=== PATIENT | female | born 1970 | race Caucasian/White ===

== ENCOUNTER 2016-06-09 12:43 | Inpatient (IN) | payer SELFPAY ==
[~2016-06-09] VITALS: Ht 144.8 cm; Wt 63.1 kg
--- NOTE | ~2016-06-09 | CATH ---
Cardiac Diagnostic + PCI Report Demographics Patient Name EDELMIRA Zepeda Gender Female Date of 1970 Age 46 year(s) Patient Number [id number] Date of Study 06/09/2016 Visit Number [id number] Room Number G6333 [place] [id number] Ht 149.86 cm Wt 66.2 kg Referring [facility] Primary Physician Physician Jacinda RAMIREZ Performing [facility] Secondary Physician Physician Jacinda RAMIREZ Diagnostic [facility] Assisting Physician Physician Jacinda RAMIREZ Interventional [facility] Physician Clinical Nursing Coordinator Physician Jacinda RAMIREZ Findings and Conclusions Diagnostic Findings and Conclusion 1) ANTEROLATERAL STEMI: 100% prox LAD stent thrombosis. 2) Diag 1 stent 100% occluded at ostium. Diagnostic Recommendations Primary PCI of LAD recommended. Interventional Findings and Conclusion Successful PCI of the proximal LAD after PTCA of proximal/mid LAD and ostial/proximal diagonal branch. Successful PTCA of the ostial Diagonal 1 coronary artery. 80% stenosis of ostial diag unchanged from cardiac cath in 11/2014. Interventional Recommendations Patient will be observed overnight. Hydration and followup creatinine. I will plan on seeing the patient back in 2 week(s). ASA. Statin. Beta Vick. Didier Inhibitor. Hydration and follow up Creatinine. Dual Anti-platelet therapy. Smoking Cessation. Cardiac diet . Referral to Cardiac Rehabilitation now and at discharge . Aggressive risk factor management. Reiterated the importance of compliance with meds. Procedure Description The patient was brought to the diagnostic cardiac catheterization-EP laboratory by emergency personal. Physician deemed procedure as EMERGENT. The planned puncture-incision site(s) were shaved and prepped with ChloraPrep and draped in the usual sterile manner. Conscious sedation, supplemental oxygen, and pain control medications were delivered by a registered nurse under physician guidance. Surface ECG rhythm, blood pressure measurement, and pulse oximetry were monitored throughout the procedure. Arterial access. The access site was infiltrated with lidocaine. The vessel was entered with the Seldinger technique. A sheath was advanced into the vessel and used for catheter placement. Selective right coronary angiography. A catheter was advanced into the right coronary vessel ostium under fluoroscopic guidance. Contrast was injected by hand. Images were obtained in multiple projections. Selective left coronary angiography. A catheter was advanced into the left coronary vessel ostium under Fluoroscopic guidance. Contrast was injected by hand. Images were obtained in multiple projections. Stent Placement: A guiding catheter was used to intubate the vessel. A 0.14 wire was used to cross the lesion. A Drug Eluting Stent was placed. Post placement angiograms were performed. Arterial artery hemostasis was achieved. The patient was transferred to a regular nursing floor via cart accompanied by a nurse. The patient left the laboratory in stable condition. Diagnostic Cath Status: Emergency Interventional Cath Status: Emergency Procedure Procedure Type Diagnostic procedure:Angiography:, Coronary Angios PCI procedure:Drug Eluting Coronary Stent:, LAD, PTCA:, LAD, Diagonal Indications: Acute MA. The procedure was explained in detail to the patient. Risks, complications and alternative treatments were reviewed. Written consent was obtained. Medications Reviewed with Patient prior to Procedure. Angiographic Findings Dominance: Left Cardiac Arteries and Lesion Findings LMCA: Normal (0% Stenosis). LAD: Abnormal.There is a previous stent on Prox LAD showing occlusion. Lesion on Prox LAD: Proximal subsection.100% stenosis reduced to 0%. Pre procedure AMY 0 flow was noted. Post Procedure AMY III flow was present. The guidewire cross was successful.A poor run off was present.The lesion was diagnosed as a high risk lesion.The lesion showed evidence of thrombus presence.Culprit lesion. The lesion was previously treated on 03/13/2000 with the following techniques: drug eluting stent. This is in-stentrestenosis and in-stent thrombus. Devices used - Runthrough NS .014 x 180. Number of passes: 1. - Emerge Balloon 2.5 x 8. 3 inflation(s) to a max pressure of: 8 alejandro. - NC Emerge Balloon 3.0 x 20. 3 inflation(s) to a max pressure of: 14 alejandro. - Emerge Balloon 2.5 x 20. 1 inflation(s) to a max pressure of: 12 alejandro. - Alpine Stent 3.25 x 33. 1 inflation(s) to a max pressure of: 12 alejandro. Lesion on 1st Diag: Proximal subsection.100% stenosis 25 mm length reduced to 0%. Pre procedure AMY 0 flow was noted. Post Procedure AMY III flow was present. The guidewire cross was successful.A poor run off was present.The lesion was diagnosed as a high risk lesion.Culprit lesion. The lesion was previously treated with the following techniques: stent unknown type. This is in-stentrestenosis. Devices used - Runthrough NS .014 x 180. Number of passes: 1. - Emerge Balloon 2.0 x 8. 2 inflation(s) to a max pressure of: 14 alejandro. - Emerge Balloon 2.5 x 20. 3 inflation(s) to a max pressure of: 14 alejandro. LCx: Abnormal.There is a previous stent on Mid CX showing focal ISR. Lesion on Mid CX: 30% stenosis . The lesion was previously treated on 03/13/2000 with the following techniques: stent unknown type and unknown/other technique. This is in-stentrestenosis. Lesion on Dist CX: 30% stenosis . Lesion on 1st Ob Olivia% stenosis . RCA: Abnormal.There is a previous stent on Prox RCA showing focal ISR. Lesion on Prox RCA: 20% stenosis . The lesion was previously treated on 08/27/2012 with the following techniques: stent unknown type and unknown/other technique. This is in-stentrestenosis. Ramus: Abnormal. Lesion on Ramus: Mid subsection.40% stenosis . Coronary Tree Procedure Data Procedure Date Date: 06/09/2016Start: 01:01 PMEnd: 02:24 PM Entry Locations - Retrograde Percutaneous access was performed through the Right Radial artery (Primary location). A 6 Fr sheath was inserted. Hemostasis was successfully obtained using Mechanical Compression. Entry Comments: 6Fr. Slender Sheath was used... Closure Comments: Jolanta placed band 13 ml air placed in r band. Procedure Medications Order and Administration + + + + + !Time !Medication !Dosage !Route ! + + + + + !06/09/2016 01:01 !Versed !2 mg !I.V. ! !PM ! ! ! ! + + + + + !06/09/2016 01:02 !Oxygen !2 l/min !NC ! !PM ! ! ! ! + + + + + !06/09/2016 01:11 !Fentanyl !50 mcg !I.V. ! !PM ! ! ! ! + + + + + !06/09/2016 01:13 !Oxygen !6 l/min !NC ! !PM ! ! ! ! + + + + + !06/09/2016 01:20 !Angiomax (Bivalirudin) !50 mg/kg/hr !I.V. bolus ! !PM !(ACC_5) ! ! ! + + + + + !06/09/2016 01:21 !Angiomax (Bivalirudin) !1.75 mg/kg/hr!I.V. drip ! !PM !(ACC_5) ! ! ! + + + + + !06/09/2016 01:36 !Fentanyl !25 mcg !I.V. ! !PM ! ! ! ! + + + + + !06/09/2016 01:41 !Fentanyl !25 mcg !I.V. ! !PM ! ! ! ! + + + + + !06/09/2016 01:55 !Brilinta (Ticagrelor) !180 mg !P.O. ! !PM !(ACC_20) ! ! ! + + + + + !06/09/2016 02:00 !Versed !1 mg !I.V. ! !PM ! ! ! ! + + + + + !06/09/2016 01:48 !Fentanyl !25 mcg ! ! !PM ! ! ! ! + + + + + !06/09/2016 01:56 !Fentanyl !25 mcg !I.V. ! !PM ! ! ! ! + + + + + Devices Used - A5 Fr. BS JR 4 Diag. Catheterwas used for:Right coronary angiography. - A6 Fr. EBU 3.5 Guide Catheterwas used for:Left coronary angiography. - A5 Fr. BS JL 3.5 Diag. Catheterwas used for:Was not used. Contrast Material - Isovue 07748 ml Fluoroscopy Time: Diagnostic: 14:54 minutes. Total: 14:54 minutes. Fluoroscopy Dose: Diagnostic: 873 mGy. Total: 873 mGy. Estimated Blood Loss: 20 ml. Additional [facility] PCI Information PCI Indication:Immediate PCI for STEMI. Medical History Performed Procedures and Imaging Results - No [facility] stress or imaging studies were performed. Allergies - No known allergies. Risk Factors The patient risk factors include:prior PCI on 08/27/2012;treated hypercholesterolemia, treated hypertension, family history of premature CAD, orally-treated diabetes mellitus, dyslipidemia, Current/Recent(w/in 1 year) tobacco use and prior MA . Admission Data Admission Date: 06/09/2016 Admission Time: 12:45 PM Admit Source: Emergency department Insurance Payors: None. Clinical Evaluation Leading to Procedure - The patient's CAD presentation was assessed as: STEMI.The symptom onset was first noted on 06/09/2016 12:45 PM(time was estimated). - The patient's anginal syndrome during the past two weeks was assessed as: Class IV according to the [place] Cardiovascular Society Classification System (CCS). Snapshots Hemodynamics Condition: Rest O2 Consumption: Estimated: 159.42Heart Rate: 70 bpm Pressures (mmHg) +-----+ + !Site !Pressure ! +-----+ + !AO !148/87 (114) ! +-----+ + !AO !135/84 (107) ! +-----+ + Shunts Oxygen Values O2 Consumption 159.42 Discharge Data Discharge Date: 06/10/2016 Hospital Status: Inpatient Signatures dtt: JACINDA TAYLOR dtd: 06/09/16 1301 Physician Self Edit
--- NOTE | ~2016-06-09 | ECHO ---
Transthoracic Echocardiography Report (TTE) Demographics Patient Name DELILAH HICKEY Date of Study 06/09/2016 Patient Number [id number] Visit Number [id number] Date of 1970 Room Number G6333 Gender Female Number Age 46 year(s) Referring Luis Miguel Monaco Mine Wirer Richard Villeda Physician RD, RVT Physician Interpreting Luis Miguel Monaco Senior Health Educator Physician MD Supervising Ordering Luis Miguel Monaco MD/MLP Physician MD Nurse Stress Second Cutter Conclusions Summary Technically difficult exam due to patient position and body habitus. Definity contrast study performed to help visualize the regional wall motion abnormalities better. Ischemic cardiomyopathy with mildly reduced LV systolic function. The estimated left ventricular ejection fraction is 40-45%. The entire anteroseptum appears akinetic. Mild assymetric septal left ventricular hypertrophy. Diastolic assessment reveals Grade I diastolic dysfunction. No significant valvular abnormalities. No evidence of pericardial effusion. Procedure Type of Study TTE procedure:2D Echocardiogram, Echo with Contrast. Procedure Date Date: 06/09/2016 Start: 04:26 PM Study Location: Inpatient Portable Technical Quality: Adequate visualization Indications:Post PTCA. Appropriate Use Criteria: 9 Patient Status: Routine Contrast Medium: Definity. Amount - 4 ml HR: 75 bpm BP: 132/80 mmHg Allergies - No known allergies. M-Mode/2D Measurements LV Diastolic Dimension: 3.81 cm LV Systolic Dimension: 2.65 cm LV Septum Diastolic: 1.11 cm LV PW Diastolic: 0.76 cm AO Root Dimension: 2.5 cm Cardiac Output: 2.61 l/min LA Dimension: 2.7 cm LVOT: 1.6 cm LVOT VTI: 17.3 cm RV Base: 2.7 cm LV Stroke volume: 34.77 ml RV Length: 5.6 cm TAPSE: 2.01 cm TDI-S': 14.7 cm/s Doppler Measurements AV Peak Velocity: 1.36 m/s MV Peak E-Wave: 0.63 m/s AV Peak Gradient: 7.4 mmHg MV Peak A-Wave: 0.74 m/s AV Mean Gradient: 4 mmHg MV E/A Ratio: 0.85 LVOT Peak Velocity: 0.81 m/s MV P1/2t: 50 msec TR Gradient:28.3 mmHg PV Peak Velocity: 0.77 m/s Estimated RAP:5 mmHg PV Peak Gradient: 2.36 mmHg Estimated RVSP: 33 mmHg Estimated PASP: 33.3 mmHg E' Septal Velocity: 0.03 m/s A' Septal Velocity: 0.09 m/s E' Lateral Velocity: 0.04 m/s A' Lateral Velocity: 0.09 m/s Findings Left Ventricle Mild assymetric septal left ventricular hypertrophy. Diastolic assessment reveals Grade I diastolic dysfunction. Right Ventricle Normal right ventricle structure and function. Left Atrium Normal left atrial size. Right Atrium Normal right atrial size. IVC measures 1.2 cm with inspiratory collapse. Mitral Valve Trace mitral regurgitation by color Doppler. Aortic Valve Normal aortic valve structure and function. Tricuspid Valve Mild tricuspid regurgitation by color Doppler. Pulmonic Valve Normal pulmonic valve structure and function. Pericardial Effusion No evidence of pericardial effusion. Miscellaneous Visualized portions of the aortic root and ascending aorta appear normal in size. Pleural Effusion No evidence of pleural effusion. Signature dtt: TAMIA TAYLOR dtd: 06/09/16 1626 Physician Self Edit
--- NOTE | ~2016-06-09 | ER ---
PATIENT'S NAME: DELILAH HICKEY [facility] AGE: 46 Y [address] ROOM: [place] [address] LOCATION: GPCU ADMIT DATE: 06/09/2016 ER/Outpatient Report DISCHARGE DATE: FAMILY PHYSICIAN: PHYSICIAN, NO ATTENDING PHYSICIAN: TAMIA TAYLOR Time of Arrival: 1243 hours. Time Seen: 1243 hours. ID: 46-year-old female. CHIEF COMPLAINT: Code STEMI. HISTORY OF PRESENT ILLNESS: The patient is a 46-year-old female who was at [facility] when she developed chest pain, lightheadedness, and dizziness. She did fall then and fell backwards striking her posterior scalp and is complaining of headache and pain down her entire spine. EMS transmitted an EKG pre-hospital that showed ST- elevation in leads V1 to V5 and also in lead I with reciprocal depression. The patient does have a history of previous MS and stent in 2011. Now, however, she is not complaining of chest pain, she is complaining of headache and spine pain. ALLERGIES: THE PATIENT DENIES ANY ALLERGIES. CURRENT MEDICATIONS: None. MEDICAL PROBLEMS: She stated only coronary artery disease. Records reflect history of diabetes mellitus type 2 and hypertension. PRIOR SURGERIES: Appendectomy, cholecystectomy, and . SOCIAL HISTORY: Tobacco use, unknown at the time of arrival. Records reflect a history of tobacco use. FAMILY HISTORY: Positive for premature coronary artery disease on both sides of her family. PATIENT'S NAME: DELILAH HICKEY [facility] AGE: 46 Y [address] ROOM: [place] [address] LOCATION: GPCU ADMIT DATE: 06/09/2016 ER/Outpatient Report DISCHARGE DATE: FAMILY PHYSICIAN: PHYSICIAN, NO ATTENDING PHYSICIAN: TAMIA TAYLOR REVIEW OF SYSTEMS: All systems reviewed and negative other than what is noted in the HPI. PHYSICAL EXAMINATION: Was done briefly as the patient was being wheeled in. She was hemodynamically stable, so Dr. Monaco, winch stripper was here and we did take her straight to CT scan for CT of her head and spine. Code STEMI had been called from the field. VITAL SIGNS: Blood pressure 112/76, pulse 74, respirations 28, and saturations 98%. GENERAL: A 46-year-old female, in distress with pain in her head and spine. HEENT: Head: Normocephalic, atraumatic. Ears: TMs not visualized. Eyes: Pupils equal and reactive to light and accommodation. Extraocular movements intact. Nose: Mucosa pink. No lesions. Mouth: No lesions. Pharynx, benign. No malocclusion of her teeth. LUNGS: Clear to auscultation. HEART: Regular rate and rhythm. ABDOMEN: Soft, nondistended, and nontender. SKIN: [place], warm, and dry. No lesions or rashes noted. NEURO: The patient is alert and oriented x4. Cranial nerves 2 through 12 grossly intact. Motor strength 5/5 throughout. Sensation is intact to light touch. EMERGENCY DEPARTMENT COURSE: The patient was taken directly to CT scan. Head CT, no acute findings. Cervical spine CT, no acute findings. Thoracic spine CT, no acute findings. Lumbar spine CT, no acute findings. Mild ectasia of the ascending thoracic aorta and coronary stent and calcifications are present. Lab was going to be drawn in the Hardware Test Engineer and repeat EKG at the hospital, Dr. Monaco cancelled. She was then taken immediately to Hardware Test Engineer. I did review the labs drawn in Hardware Test Engineer. Sodium 140, potassium 3.4, chloride 106, CO2 of 22, BUN 9, creatinine 0.6, and blood sugar 210. CPK 60, CK-MB 0.6, and troponin I less than 0.040. Hemoglobin A1c 7.2. Hemoglobin 13.6, hematocrit 41.4, platelets 314, and white count 20.3. IMPRESSION AND PLAN: 1. Code ST elevation myocardial infarction. 2. Fall with head and spine pain. PLAN: The patient was taken directly to CT and then to Hardware Test Engineer. Plan per Dr. Monaco, winch stripper. PATIENT'S NAME: DELILAH HICKEY [facility] AGE: 46 Y [address] ROOM: G6333 [place], [place] [address] LOCATION: GPCU ADMIT DATE: 06/09/2016 ER/Outpatient Report DISCHARGE DATE: FAMILY PHYSICIAN: PHYSICIAN, NO ATTENDING PHYSICIAN: TAMIA TAYLOR MD LUZ WHEELER/rama /[id number] d: 06/10/16 0013 t: 06/15/16 0114, OUTPATIENT REPORT
--- NOTE | ~2016-06-09 | CON ---
PATIENT'S NAME: DELILAH HICKEY [facility] AGE: 46 Y [address] ROOM: [place] [address] LOCATION: GPCU ADMIT DATE: 06/09/2016 Consultation DISCHARGE DATE: FAMILY PHYSICIAN: PHYSICIAN, NO ATTENDING PHYSICIAN: TAMIA TAYLOR REFERRING PHYSICIAN: Liana Diaz MD REASON FOR CARDIOLOGY CONSULTATION: STEMI. CHIEF COMPLAINT: Chest pain. HISTORY OF PRESENTING ILLNESS: The patient is a 46-year-old with extensive history of coronary artery disease. She has had stents placed in her LAD diagonal as well as mid circ, distal circ, and RCA in the past. It appears that her kiln burner helper is Dr. Leblanc, but she has not followed up with him because she does not have any insurance, she cannot afford medications. She has been noncompliant with all her medications. She does smoke half a pack per day. Apparently, she was in her usual state of health. Late morning, she went to [facility] and she started complaining of severe chest pain as well as diaphoresis. She felt lightheaded, lost consciousness, fell down, and hurt her back and head. EMS was called and they got EKG on site where there was evidence of significant ST elevation in the anterolateral leads with ST depressions reciprocal in the inferior leads. The patient had severe chest pain as well as back pain upon arrival. A stat CT scan of the head was done in the emergency room to ensure no bleed in her brain as well as quick CT scan of the spine was done to make sure no significant herniation noted. During interview, the patient was in moderate distress and complained of chest as well as back pain. The patient does not have any bleeding issues. She does not have any upcoming surgeries. No allergies. She does not have any fever, chills, cough, no dyspnea on exertion prior to today. She does not have any stroke-like symptoms, changes in her speech or sensation. Again, she is not taking any medications or has not seen a doctor in the recent past. She also has history of diabetes, she reports borderline, and she is on diet control for that. PATIENT'S NAME: DELILAH HICKEY [facility] AGE: 46 Y [address] ROOM: [place] [id number] LOCATION: GPCU ADMIT DATE: 06/09/2016 Consultation DISCHARGE DATE: FAMILY PHYSICIAN: PHYSICIAN, NO ATTENDING PHYSICIAN: TAMIA TAYLOR REVIEW OF SYSTEMS: 10-point review of systems discussed with the patient. Pertinent positives and negatives mentioned in the history of presenting illness. PAST MEDICAL HISTORY: 1. Diabetes mellitus, borderline, on diet control. 2. Coronary artery disease. 3. Hypertension. PAST SURGICAL HISTORY: Postop appendectomy, post cholecystectomy. MEDICATIONS: None. ALLERGIES: NONE. SOCIAL HISTORY: The patient smokes half a pack per day for the past 32 years. She did cut back recently. She used to smoke about one pack per day before that. She does drink alcohol. No alcohol abuse or illicit drug abuse. PHYSICAL EXAMINATION: VITAL SIGNS: Blood pressure 130/70, saturating 98% on 4 L of oxygen, respirations 18, afebrile. GENERAL: The patient is in moderate distress from back and chest pain. She is cooperative. SKIN: Warm and dry. EYES: Sclera nonicteric. No xanthelasmas. NOSE: Nares are normal. Mucous membranes are moist. NECK: Supple. HEART: S1, S2. Regular rate and rhythm. LUNGS: Clear to auscultation bilaterally. ABDOMEN: Soft. Bowel sounds positive. EXTREMITIES: Radial 2+. NEUROLOGIC: Grossly intact. MUSCULOSKELETAL: No swelling of her joints. LABORATORY DATA: Sodium 140, potassium 3.4, chloride 106, glucose 210, BUN 9, creatinine 0.9. ProBNP 360. WBC 20.3, H and H 13.6 and 41.4. Platelets are 314. EKG; sinus rhythm with anterolateral ST elevation KS with reciprocal changes off ST depression in the inferior leads. PATIENT'S NAME: DELILAH HICKEY [facility] AGE: 46 Y [address] ROOM: G6333 [place], [place] [address] LOCATION: GPCU ADMIT DATE: 06/09/2016 Consultation DISCHARGE DATE: FAMILY PHYSICIAN: PHYSICIAN, [place] ATTENDING PHYSICIAN: TAMIA TAYLOR IMPRESSION: 1. Acute anterolateral ST-elevation myocardial infarction. 2. Diabetes mellitus. 3. Tobacco abuse. 4. Noncompliance with medications. 5. History of coronary artery disease status post stents to the mid LAD diagonal 1, mid circ, distal circ, and RCA. PLAN: At this time, the patient is having an acute anterolateral ST-elevation KS and needs to be taken to the cardiac tin can laborer emergently. Risks and benefits discussed with the patient on route to tin can laborer and she is agreeable to proceed with the plan. Counselled against tobacco abuse. Final plans and recommendations will be done after the cardiac tin can laborer. We will get an echocardiogram the after cardiac cath. The patient is a full code. Thank you very much for allowing us to participate in the care of Ms. Bennie Gomez. TAMIA TAYLOR MD AT/modl /[id number] d: 06/09/167 t: 06/10/16 1404, CONSULTATION REPORT
[2016-06-09 13:29] LABS: BASOPHIL # 0.1 K/uL (0.0-0.2); BASOPHIL % 0.3 %; EOSINOPHIL # 0.2 K/uL (0.0-0.5); EOSINOPHIL % 1.1 %; HEMATOCRIT 41.4 % (33.0-46.0); HEMOGLOBIN 13.6 g/dL (10.0-15.0); IMMATURE GRANULOCYTE # 0.1 K/uL (0.0-0.3); IMMATURE GRANULOCYTE % 0.5 %; LYMPHOCYTE # 3.8 K/uL (0.8-4.0); LYMPHOCYTE % 18.6 %; MCH 30.4 pg (27.0-34.0); MCHC 32.9 gm/dL (32.0-36.5); MCV 92.4 fl (83.0-98.0); MONOCYTE # 1.9 K/uL (0.0-1.0); MONOCYTE % 9.5 %; MPV 9.7 fl (9.4-12.4); NEUTROPHIL # (ANC) 14.2 K/uL (1.8-7.8); NRBC % 0 /100WBC (0-0.00); RBC 4.48 M/uL (3.50-5.50)
[2016-06-09 13:30] LABS: PLATELET COUNT 314 K/uL (150-450); WBC 20.3 K/uL (4.0-11.0)
[2016-06-09 13:49] LABS: ANION GAP 15.4 (10.0-19.0); BLOOD UREA NITROGEN 9 mg/dL (6-24); CALCIUM 7.9 mg/dL (8.5-10.5); CHLORIDE 106 mMol/L (96-110); CO2 22 mMol/L (22-32); CPK 60 IU/L (21-215); CREATININE 0.6 mg/dL (0.5-1.1); ESTIMATED GFR (MDRD EQUATION) > 60; POTASSIUM 3.4 mMol/L (3.7-5.1); SODIUM 140 mMol/L (135-145)
--- NOTE | 2016-06-09 16:16 | NUR ---
Pt is 46 y/o female admit for chest pain>stent for . Pt alert and oriented x3. Resides at home with her family. Hx MIx2,stents x5,htn,hyper- cholest,ulcer,gerd,bronchitis,DM. Hasn't taken her meds for awhile due to cost. Pt was at work didn't feel well,lightheaded and went into the cooler thinking she would feel better if she cooled off and then she fell,hitting back of her head. Coworkers found her and called the EMS unit. Pt taken to ED then to boat laborer for intervention.
--- NOTE | 2016-06-09 17:13 | NUR ---
Significant Event: VS WNL on room air. Currently removing air from R-band. R) radial site has small amount of bruising and residual blood but looks good. CSM WNL. Hair matted in back from cut to back of head. Unable to locate exact location of cut but it is not actively bleeding. Voided upon return from microbiology laboratory manager. NS to upper L) arm running w/out complication. SL to R) hand flushes well. C/o some back pain, relieved with repositioning. No c/o headache. CT of head and neck were negative per report. Follow up: Per plan of care.
--- NOTE | 2016-06-10 04:41 | NUR ---
Significant Event: A/O, SBP 110-140s, HR 70-80s, RA, afebrile, bandaid and coban to R)radial cath site, csm wnl, voiding well, up ad marilyn, Tylenol given for headache/back pain with relief Follow up: continue plan of care
[2016-06-10 05:13] LABS: BASOPHIL # 0.1 K/uL (0.0-0.2); BASOPHIL % 0.5 %; EOSINOPHIL # 0.3 K/uL (0.0-0.5); EOSINOPHIL % 2.1 %; HEMOGLOBIN 12.8 g/dL (10.0-15.0); IMMATURE GRANULOCYTE # 0.1 K/uL (0.0-0.3); IMMATURE GRANULOCYTE % 0.4 %; LYMPHOCYTE # 3.3 K/uL (0.8-4.0); LYMPHOCYTE % 27.8 %; MCV 93.9 fl (83.0-98.0); MONOCYTE # 1.7 K/uL (0.0-1.0); MONOCYTE % 14.5 %; MPV 9.8 fl (9.4-12.4); NEUTROPHIL # (ANC) 6.4 K/uL (1.8-7.8); NEUTROPHIL % 54.7 %; NRBC % 0 /100WBC (0-0.00); RBC 4.26 M/uL (3.50-5.50); RDW-CV 14.2 % (11.9-14.6); WBC 11.7 K/uL (4.0-11.0)
[2016-06-10 05:28] LABS: ALBUMIN 2.8 gm/dL (3.5-5.0); ALK PHOS 69 IU/L (33-138); ALT 20 IU/L (12-78); ANION GAP 12.1 (10.0-19.0); AST 46 IU/L (10-40); BLOOD UREA NITROGEN 10 mg/dL (6-24); CALCIUM 7.7 mg/dL (8.5-10.5); CHLORIDE 104 mMol/L (96-110); CO2 26 mMol/L (22-32); CREATININE 0.6 mg/dL (0.5-1.1); ESTIMATED GFR (MDRD EQUATION) > 60; POTASSIUM 4.1 mMol/L (3.7-5.1); SODIUM 138 mMol/L (135-145); TOTAL BILIRUBIN 0.2 mg/dL (0.0-1.5); TOTAL PROTEIN 6.2 g/dL (6.0-8.4)
[2016-06-10 05:33] LABS: PLATELET COUNT 228 K/uL (150-450)
[2016-06-10 09:37] LABS: MAGNESIUM 1.9 mg/dL (1.3-2.6)
--- NOTE | 2016-06-10 12:12 | NUR ---
Introduced self and role of care management to pt. Pt lives in [place] with her and friends. She just got a new job at [employer]. She does not have insurance and does not have a job. I did make sure she has a financial application and will notify Giuseppe. She plans on home today. I did explain I placed a free 30 day card for Brilinta and signed her up for [facility] and the importance of taking the med and if runs out to please contact [facility] cardiology. I also told her I asked md to consider $4 meds/generic as well for her. I asked about a pcp and she is planning to set up something at [facility]. I will also give her paperwork for this as well. I will fax over dc meds and orders to [facility] once complete. At this time denies any other concern.
[2016-06-10] MEDS ORDERED: LIPITOR80 MG PO (14:17)
[2016-06-10] MEDS ORDERED: ASPIRIN (CHILDR81 MG PO (14:17)
[2016-06-10] MEDS ORDERED: PRINIVIL (ZESTRI5 MG PO (14:18)
[2016-06-10] MEDS ORDERED: LOPRESSOR25 MG PO (14:23)
[2016-06-10] MEDS ORDERED: BRILINTA90 MG PO (14:24)
[2016-06-10] MEDS ORDERED: TYLENOL325 MG PO (14:24)
--- NOTE | 2016-06-10 15:14 | NUR ---
Significant Event:PT IS AAOX3. NO CHEST PAIN. NO SOB. IV REMOVED X2. NO COMPLICATIONS. INSTRUCTION GIVEN TO PT AND . SAMPLES SENT WITH PATIENT Follow up:
== END 2016-06-10 14:50 | disposition disaster alternative care site (69) | DRG 247 ==
LOC: GMED 12:43 → GPCU 12:45
PROVIDERS: Nurse Practitioner; ADMIT Internal Medicine Interventional Cardiology
PROC: 027034Z Dilation of Coronary Artery, One Artery with Drug-eluting Intraluminal Device, Percutaneous Approach (ICD-10-PCS; principal; 2016-06-09)
PROC: 02703ZZ Dilation of Coronary Artery, One Artery, Percutaneous Approach (ICD-10-PCS; principal; 2016-06-09)
PROC: B2111ZZ Fluoroscopy of Multiple Coronary Arteries using Low Osmolar Contrast (ICD-10-PCS; principal; 2016-06-09)
DX: I21.02 ST elevation (STEMI) myocardial infarction involving left anterior descending coronary artery (principal); T82.855A Stenosis of coronary artery stent, initial encounter; I10 Essential (primary) hypertension; I25.10 Atherosclerotic heart disease of native coronary artery without angina pectoris; I25.2 Old myocardial infarction; E11.9 Type 2 diabetes mellitus without complications; Y84.8 Other medical procedures as the cause of abnormal reaction of the patient, or of later complication, without mention of misadventure at the time of the procedure; E78.5 Hyperlipidemia, unspecified; Z82.49 Family history of ischemic heart disease and other diseases of the circulatory system; M54.2 Cervicalgia; R51 Headache; W18.39XA Other fall on same level, initial encounter; Z91.14 Patient's other noncompliance with medication regimen; F17.200 Nicotine dependence, unspecified, uncomplicated
CPT/HCPCS: C1725; C1769; C1874; C1887; C1894; C8929; C9606; J0461; J0583; J1644; J2250; J2270; J2370; J3010; J7030; J7060; Q9957

== ENCOUNTER → 2016-06-09 | Outpatient (CLI) | payer SELFPAY ==
[~2016-06-09] MED LIST: ASPIRIN (CHILDR81 MG PO; BRILINTA90 MG PO; LIPITOR80 MG PO; LOPRESSOR25 MG PO; PRINIVIL (ZESTRI5 MG PO; TYLENOL325 MG PO
== END | disposition disaster alternative care site (69) ==
LOC: GAMB 12:17
DX: R07.9 Chest pain, unspecified (principal); R55 Syncope and collapse
CPT/HCPCS: A0425; A0427; J2405

== ENCOUNTER 2016-06-24 14:12 | Emergency (ER) | payer OTHER ==
--- NOTE | ~2016-06-24 | ER ---
PATIENT'S NAME: DELILAH HICKEY [facility] AGE: 46 Y [address] ROOM: [place] [address] LOCATION: [facility] ADMIT DATE: 06/24/2016 ER/Outpatient Report DISCHARGE DATE: 06/24/2016 FAMILY PHYSICIAN: PHYSICIAN, NO ATTENDING PHYSICIAN: Liana Diaz Time of Arrival: 1412 hours. Time Seen: 1414 hours. IDENTIFICATION: A 46-year-old female. CHIEF COMPLAINT: Headache. HISTORY OF PRESENT ILLNESS: The patient is a 46-year-old female who had an acute ST-elevation AL on 06/09/2016, with that chest pain episode she fell backwards striking her posterior scalp and complained of a headache and pain down her spine. She did have a head CT, cervical spine CT, thoracic and lumbar spine CT immediately on that arrival and then was taken to slab grinder where she was found to have a 100% proximal LAD stent thrombosis and a diagonal stent 100% occluded at the ostium. She had a primary PCI of the LAD per Dr. Jacinda Bolanos. She has continued to have a posterior headache since that time, slight nausea, slight neck discomfort, photophobia, and some dizziness. She denies any chest pain and no other problems or concerns. She was not prone to headaches prior to this. ALLERGIES: NO KNOWN DRUG ALLERGIES. CURRENT MEDICATIONS: 1. She was prescribed aspirin 81 mg daily, which she is taking. 2. Atorvastatin 80 mg daily, which she has not filled yet. 3. Lisinopril 5 mg daily, which she has not filled yet. 4. Metoprolol 25 mg b.i.d., which she has not filled yet. 5. Brilinta 90 mg b.i.d., which she states she is taking. MEDICAL PROBLEMS: Coronary artery disease, status post AL and stents in 2011. Records reflect history of diabetes mellitus and hypertension, recent proximal LAD stenosis with stent. PRIOR SURGERIES: Appendectomy, cholecystectomy, section, and cardiac stents. PATIENT'S NAME: DELILAH HICKEY [facility] AGE: 46 Y [address] ROOM: [place] [address] LOCATION: [facility] ADMIT DATE: 06/24/2016 ER/Outpatient Report DISCHARGE DATE: 06/24/2016 FAMILY PHYSICIAN: PHYSICIAN, NO ATTENDING PHYSICIAN: Liana Diaz SOCIAL HISTORY: The patient lives here in [place]. She is . She works at [employer]. Tobacco use, greater than 1 pack per day for 30 years. Alcohol use, occasional. Drug use, denies. REVIEW OF SYSTEMS: All systems reviewed and negative other than what is noted in the HPI. FAMILY HISTORY: Positive for premature coronary artery disease. PHYSICAL EXAMINATION: VITAL SIGNS: Weight 65.5 kilograms, blood pressure 122/78, pulse 114, respirations 20, temperature 98.1, sats 95%. GENERAL: A 46-year-old female, in no acute distress. HEENT: Head; normocephalic, atraumatic. Ears; TMs translucent, both ears. Eyes; pupils equal and reactive to light and accommodation. Extraocular movements intact. Nose, mucosa pink. No lesions or drainage. Mouth, no lesions. Pharynx benign. NECK: Supple. No lymphadenopathy. LUNGS: Clear to auscultation. HEART: Regular rate and rhythm. No murmur, rub, or gallop. ABDOMEN: Bowel sounds present. Soft, nondistended. No hepatosplenomegaly. No palpable masses. Nontender. SKIN: [place], warm, and dry. No lesions or rashes noted. NEUROLOGIC: The patient is alert and oriented x4. Cranial nerves 2 through 12 grossly intact. Motor strength 5/5 throughout. Sensation is intact to light touch. She has a scabbed lesion on her right posterior scalp which is tender to palpation. Tender to palpation of her cervical spine, midline; no palpable deformities, it is a little bit more to the left where it is tender. LABORATORY DATA AND X-RAYS: Cervical spine CT, negative for acute fracture or dislocation. She has an incomplete bone formation at the posterior arch of C1, this is a normal variant. Degenerative changes at cervical intervertebral levels, most pronounced at C5-C6 and C6-C7. Head CT, no acute findings per Dr. Cavazos, radiologist. IMPRESSION: 1. Headache, post concussive headache. 2. Coronary artery disease. 3. Tobacco abuse. PLAN: PATIENT'S NAME: DELILAH HICKEY [facility] AGE: 46 Y [address] ROOM: [place] [address] LOCATION: [facility] ADMIT DATE: 06/24/2016 ER/Outpatient Report DISCHARGE DATE: 06/24/2016 FAMILY PHYSICIAN: PHYSICIAN, MONTSERRAT ATTENDING PHYSICIAN: Liana Diaz Long discussion regarding smoking cessation and filling her prescribed medications and the importance of having those. Stay quite for 7 days. No work until followup with Dr. Jacinda Bolanos next week. Ransom 5/325 one p.o. q.6 hours p.r.n. severe pain, dispensed 10 with 0 refills. Follow up with Dr. Jacinda Bolanos next . The patient and her understand and agree, and all questions have been answered. MD LUZ WHEELER/rama /[id number] d: 06/24/16 2334 t: 06/28/16 0649, OUTPATIENT REPORT
== END 2016-06-24 15:35 | disposition disaster alternative care site (69) ==
LOC: GACC 14:12
DX: G44.309 Post-traumatic headache, unspecified, not intractable (principal); I25.10 Atherosclerotic heart disease of native coronary artery without angina pectoris; I25.2 Old myocardial infarction; E11.9 Type 2 diabetes mellitus without complications; I10 Essential (primary) hypertension; F17.210 Nicotine dependence, cigarettes, uncomplicated; Z79.82 Long term (current) use of aspirin; Z90.49 Acquired absence of other specified parts of digestive tract; Z98.890 Other specified postprocedural states

== ENCOUNTER 2016-07-24 09:20 | Emergency (ER) | payer SELFPAY ==
--- NOTE | ~2016-07-24 | ER ---
PATIENT'S NAME: DELILAH HICKEY [facility] AGE: 46 Y [address] ROOM: [place] [address] LOCATION: ED ADMIT DATE: 07/24/2016 ER/Outpatient Report DISCHARGE DATE: 07/24/2016 FAMILY PHYSICIAN: PHYSICIAN, NO ATTENDING PHYSICIAN: Winston Diaz TIME OF ARRIVAL: 0920 hours. TIME SEEN: 0940hours. IDENTIFICATION: A 46-year-old female. CHIEF COMPLAINT: Back pain. HISTORY OF PRESENT ILLNESS: The patient is a 46-year-old female who has had low back pain for the last 2 days. She says it is in her low back and radiates down the back of her both of her legs. No numbness or tingling other than she said her toes do have some tingling. She has no bowel or bladder problems. She denies having any prior history of back pain. However, I have seen her a couple of different times here lately when she did have back pain. Most recently, patient had an acute CO with fallJune 09 status post LAD and diagonal stents. The patient denies any dysuria. No increased frequency of urination. No fever or chills. ALLERGIES: NO KNOWN DRUG ALLERGIES. CURRENT MEDICATIONS: She does not have her list with her, but she states that she is taking them as ordered. At her last visit, she was not taking them as ordered and was prescribed aspirin 81 mg daily, Atorvastatin 80 mg daily, lisinopril 5 mg daily, metoprolol 25 mg b.i.d., and Brilinta 90 mg b.i.d. PAST MEDICAL HISTORY: Coronary artery disease status post CO and stent, diabetes mellitus, and hypertension. PRIOR SURGERIES: Appendectomy, cholecystectomy, section, and cardiac stents. PATIENT'S NAME: DELILAH HICKEY [facility] AGE: 46 Y [address] ROOM: [place] [address] LOCATION: ED ADMIT DATE: 07/24/2016 ER/Outpatient Report DISCHARGE DATE: 07/24/2016 FAMILY PHYSICIAN: PHYSICIAN, MONTSERRAT ATTENDING PHYSICIAN: Winston Diaz SOCIAL HISTORY: The patient lives here in [place]. She is . She works at [employer]. Tobacco use, 1 pack per day for 22 years, cutting down to 1/2 pack per day. Alcohol use, occasional. Drug use, denies. REVIEW OF SYSTEMS: All systems reviewed and negative other than what is noted in the HPI. FAMILY HISTORY: Positive for premature coronary artery disease. PHYSICAL EXAMINATION: VITAL SIGNS: Height 5 feet 1 inch, weight 64.8 kg, blood pressure 129/60, pulse 92, respirations 16, temperature 98.3, sats 96% on room air. GENERAL: A 46-year-old female, in no acute distress. HEENT: Unremarkable. LUNGS: Clear to auscultation. HEART: Regular rate and rhythm. ABDOMEN: Soft, nondistended, nontender. SKIN: [place], warm, and dry. No lesions or rashes noted. NEURO: The patient is alert and oriented x4. Cranial nerves 2 through 12 grossly intact. Motor strength 5/5 throughout. Sensation is intact to light touch. Slightly diminished sensation to light touch on her feet but it does not go above the ankles. Negative straight leg raise. She is tender to palpation in her lumbar paraspinal muscles, which does reproduce her pain. The patient has had no recent fall or injury. She cannot have an MRI with her recent stents. We did give her Magnolia 2 tablets here in the emergency room and her pain improved from a 10 to a zero. IMPRESSION: Back pain. PLAN: Magnolia 5/325 1-2 p.o. q.4-6 hours p.r.n. severe pain, dispensed 10 with 0 refills. Ice or heat. No lifting and no work until followup with primary care physician in 1-2 days. Follow up sooner if any problems or concerns. The patient understands and agrees, and all questions have been answered. WINSTON DIAZ MD CAR/modl PATIENT'S NAME: DELILAH HICKEY [facility] AGE: 46 Y [address] ROOM: [place] [address] LOCATION: [facility] ADMIT DATE: 07/24/2016 ER/Outpatient Report DISCHARGE DATE: 07/24/2016 FAMILY PHYSICIAN: PHYSICIAN, NO ATTENDING PHYSICIAN: Winston Diaz /[id number] d: 07/24/162056 t: 07/27/16 0642, OUTPATIENT REPORT
== END 2016-07-24 11:11 | disposition disaster alternative care site (69) ==
LOC: GMED 09:20
DX: M54.5 Low back pain (principal); I25.2 Old myocardial infarction; I25.10 Atherosclerotic heart disease of native coronary artery without angina pectoris; E11.9 Type 2 diabetes mellitus without complications; F17.210 Nicotine dependence, cigarettes, uncomplicated; I10 Essential (primary) hypertension; Z90.49 Acquired absence of other specified parts of digestive tract; Z95.5 Presence of coronary angioplasty implant and graft; Z79.82 Long term (current) use of aspirin; Z79.899 Other long term (current) drug therapy

== ENCOUNTER 2016-08-14 12:04 | Emergency (ER) | payer SELFPAY ==
--- NOTE | ~2016-08-14 | ER ---
PATIENT'S NAME: DELILAH HICKEY [facility] AGE: 46 Y [address] ROOM: [place] [address] LOCATION: ED ADMIT DATE: 08/14/2016 ER/Outpatient Report DISCHARGE DATE: 08/14/2016 FAMILY PHYSICIAN: Chanel Doty MD ATTENDING PHYSICIAN: Liana Diaz Time of Arrival: 1204 hours. Time of Evaluation: 1241 hours. IDENTIFICATION: A 46-year-old female. CHIEF COMPLAINT: Dizziness, nausea, and headache. HISTORY OF PRESENT ILLNESS: The patient has had dizziness, nausea, and headache for the last 2 to 3 days. She has had some decreased output when urinating. She has some back pain, which is chronic. She has had headaches before. The patient had an acute NC with a fall on June 09 and was in a couple of times with headaches and back pain after that. No previous history of migraine headaches. She had a head CT, cervical spine CT, thoracic and lumbar spine CT on June 09, and she had a subsequent head CT on a return visit on June 24 for headache. The patient has had no fever, chills. No numbness, tingling, or weakness. ALLERGIES: NO KNOWN DRUG ALLERGIES. CURRENT MEDICATIONS: 1. Aspirin 81 mg. 2. Atorvastatin 80 mg daily. 3. Lisinopril 5 mg daily. 4. Metoprolol 25 mg b.i.d. 5. Brilinta 90 mg b.i.d. MEDICAL PROBLEMS: Coronary artery disease, status post NC and stents in 2011 and again in 2017; hypertension. PRIOR SURGERIES: Appendectomy, cholecystectomy, section, and cardiac stents. SOCIAL HISTORY: The patient lives here in [place]. She is . She works at [employer]. Tobacco use, less than half pack a day. Alcohol use, occasional. Drug use, PATIENT'S NAME: DELILAH HICKEY [facility] AGE: 46 Y [address] ROOM: [place] [address] LOCATION: ED ADMIT DATE: 08/14/2016 ER/Outpatient Report DISCHARGE DATE: 08/14/2016 FAMILY PHYSICIAN: Chanel Doty MD ATTENDING PHYSICIAN: Liana Diaz. REVIEW OF SYSTEMS: All systems reviewed and negative other than what is noted in the HPI. The patient does have some dyspnea on exertion when she is walking to work, and she does have some seasonal allergies with congestion. No nasal drainage. FAMILY HISTORY: Positive for premature coronary artery disease. PHYSICAL EXAMINATION: VITAL SIGNS: Height 4 feet 9 inches, weight 62.2 kg, blood pressure 127/75, pulse 81, respirations 18, temperature 98.5, and saturations 97%. HEENT: Head: Normocephalic, atraumatic. Eyes: Pupils equal and reactive to light and accommodation. Extraocular movements intact. Nose: Mucosa is slightly congested. No drainage. No sinus tenderness. Mouth: No lesions. Pharynx benign. NECK: Supple. No lymphadenopathy. No nuchal rigidity. LUNGS: Clear to auscultation. Breath sounds are equal. HEART: Regular rate and rhythm. No murmur, rub, or gallop. ABDOMEN: Bowel sounds present. Soft, nondistended, nontender. SKIN: [place], warm, and dry. No lesions or rashes noted. NEURO: The patient is alert and oriented x4. Cranial nerves 2 through 12 grossly intact. Motor strength 5/5 throughout. Sensation is intact to light touch. No lower extremity edema. No calf tenderness. LABORATORY DATA AND X-RAYS: Hemoglobin 13.8, hematocrit 42.6, platelets 256, white count 14,000, with a normal differential. INR 0.98. Sodium 139, potassium 4.2, chloride 107, CO2 of 25, BUN 11, creatinine 0.6, blood sugar 86. Liver enzymes normal. Magnesium 1.9. CPK 61, CK-MB less than 0.5. Troponin I less than 0.040. UA: 10-20 white cells, negative red cells, 5-10 epithelial cells, many bacteria. Urine culture is pending. EKG: Normal sinus rhythm, 70 beats per minute. No acute ST elevation, no change when compared to June 09. Chest x-ray, no acute process, pending Radiology over-read. EMERGENCY DEPARTMENT COURSE: The patient was given one [place] and one Zofran, which did improve her nausea. She continued to have some dizziness and then she had some intermittent sharp chest pain, for which she said she normally would take a nitroglycerin at home. She was not having pain when I was talking to her. We did get the EKG and cardiac workup that was negative, and she had no recurrent episodes of chest pain. IMPRESSION: PATIENT'S NAME: DELILAH HICKEY [facility] AGE: 46 Y [address] ROOM: [place], [place] [address] LOCATION: [facility] ADMIT DATE: 08/14/2016 ER/Outpatient Report DISCHARGE DATE: 08/14/2016 FAMILY PHYSICIAN: Chanel Doty MD ATTENDING PHYSICIAN: Liana Diaz 1. Headache, improved. 2. Urinary tract infection. 3. Chest pain, resolved. PLAN: Rest, fluids, slow cautious movements. Bactrim DS b.i.d. for 3 days. Continue her current medications. Follow up with Dr. Doty in 1 to 2 days. Follow up sooner if any problems or concerns. The patient and her understand and agree, and all questions have been answered. LIANA DIAZ MD CAR/modl /[id number] d: 08/15/16 0004 t: 08/18/16 0933, OUTPATIENT REPORT
[2016-08-14 14:12] LABS: BASOPHIL # 0.1 K/uL (0.0-0.2); BASOPHIL % 0.5 %; EOSINOPHIL # 0.2 K/uL (0.0-0.5); EOSINOPHIL % 1.4 %; HEMATOCRIT 42.6 % (33.0-46.0); HEMOGLOBIN 13.8 g/dL (10.0-15.0); IMMATURE GRANULOCYTE % 0.3 %; LYMPHOCYTE # 3.4 K/uL (0.8-4.0); LYMPHOCYTE % 24.2 %; MCH 30.3 pg (27.0-34.0); MCHC 32.4 gm/dL (32.0-36.5); MCV 93.6 fl (83.0-98.0); MONOCYTE # 1.7 K/uL (0.0-1.0); MONOCYTE % 12.5 %; MPV 9.5 fl (9.4-12.4); NEUTROPHIL # (ANC) 8.5 K/uL (1.8-7.8); NEUTROPHIL % 61.1 %; NRBC % 0 /100WBC (0-0.00); PLATELET COUNT 256 K/uL (150-450); RBC 4.55 M/uL (3.50-5.50); RDW-CV 13.7 % (11.9-14.6)
[2016-08-14 14:20] LABS: INR - (THERAPEUTIC) 0.98 (0.92-1.07); PROTIME 10.3 SECONDS (9.8-11.4); PTT 28 SECONDS (25-32)
[2016-08-14 14:32] LABS: ALBUMIN 3.6 gm/dL (3.5-5.0); ALK PHOS 92 IU/L (33-138); ALT 25 IU/L (12-78); ANION GAP 11.2 (10.0-19.0); AST 18 IU/L (10-40); BLOOD UREA NITROGEN 11 mg/dL (6-24); CALCIUM 7.8 mg/dL (8.5-10.5); CHLORIDE 107 mMol/L (96-110); CO2 25 mMol/L (22-32); CPK 61 IU/L (21-215); CREATININE 0.6 mg/dL (0.5-1.1); ESTIMATED GFR (MDRD EQUATION) > 60; MAGNESIUM 1.9 mg/dL (1.8-2.6); POTASSIUM 4.2 mMol/L (3.7-5.1); SODIUM 139 mMol/L (135-145); TOTAL PROTEIN 7.4 g/dL (6.0-8.4)
[2016-08-14 14:34] LABS: TOTAL BILIRUBIN 0.3 mg/dL (0.0-1.5)
[2016-08-14 15:19] LABS: BILIRUBIN URINE NEGATIVE (NEGATIVE); BLOOD URINE NEGATIVE /UL (NEGATIVE); COLOR URINE YELLOW (YELLOW); GLUCOSE URINE 50 mg/dL (NEGATIVE); KETONE URINE NEGATIVE (NEGATIVE); LEUKOCYTES URINE 500 /UL (NEGATIVE); NITRITE URINE NEGATIVE (NEGATIVE); PROTEIN URINE 15 mg/dL (NEGATIVE); SPEC GRAVITY URINE 1.025 (1.003-1.035); TURBIDITY URINE 1+ (CLEAR); UROBILINOGEN URINE 1 mg/dL (NORMAL)
[2016-08-14 15:27] LABS: BACTERIA URINE MANY (NEGATIVE); MUCUS URINE 4+ (NEGATIVE); RBC URINE NEGATIVE #/HPF (NEGATIVE)
== END 2016-08-14 16:05 | disposition disaster alternative care site (69) ==
LOC: GMED 12:04
PROVIDERS: Family Medicine
DX: R07.9 Chest pain, unspecified (principal); N39.0 Urinary tract infection, site not specified; R51 Headache; I10 Essential (primary) hypertension; I25.10 Atherosclerotic heart disease of native coronary artery without angina pectoris; F17.210 Nicotine dependence, cigarettes, uncomplicated; I25.2 Old myocardial infarction; Z79.899 Other long term (current) drug therapy; Z79.82 Long term (current) use of aspirin; Z95.9 Presence of cardiac and vascular implant and graft, unspecified

== ENCOUNTER 2016-09-21 13:53 | Emergency (ER) | payer SELFPAY ==
--- NOTE | ~2016-09-21 | ER ---
PATIENT'S NAME: DELILAH HICKEY [facility] AGE: 46 Y [address] ROOM: [place] [address] LOCATION: [facility] ADMIT DATE: 09/21/2016 ER/Outpatient Report DISCHARGE DATE: 09/21/2016 FAMILY PHYSICIAN: PHYSICIAN, NO ATTENDING PHYSICIAN: Michael Wolff Time of Arrival: 1359 hours. Time of Evaluation: 1410 hours. CHIEF COMPLAINT: Neck swelling. HISTORY OF PRESENT ILLNESS: The patient is a 46-year-old female, who presents to the emergency department with a chief complaint of neck swelling. She reports this started about 1 day prior to arrival. She denies any fevers or chills. No nausea or vomiting. No photophobia or dizziness. She does report some neck discomfort and is mild in severity. It is worse with touch. She does complain of a pounding headache as well. It is not the worst headache of her life. No sudden onset. PAST MEDICAL HISTORY: Coronary artery disease, status post myocardial infarction with stenting in 2011 and 2016, hypertension, dyslipidemia. PAST SURGICAL HISTORY: Appendectomy, cholecystectomy, , and cardiac stents. SOCIAL HISTORY: The patient smokes half pack per day for 34 years. Denies any alcohol or illicit drug use. ALLERGIES: NO KNOWN DRUG ALLERGIES. MEDICATIONS: Please see list. PRIMARY CARE DOCTOR: Dr. Doty. REVIEW OF SYSTEMS: All systems are reviewed by myself and are negative with the exception of those discussed in HPI and past medical history. PHYSICAL EXAMINATION: PATIENT'S NAME: DELILAH HICKEY [facility] AGE: 46 Y [address] ROOM: [place] [address] LOCATION: [facility] ADMIT DATE: 09/21/2016 ER/Outpatient Report DISCHARGE DATE: 09/21/2016 FAMILY PHYSICIAN: PHYSICIAN, NO ATTENDING PHYSICIAN: Michael Wolff VITAL SIGNS: Weight 63.6 kg, blood pressure 138/62, pulse 93, respiratory rate 18, temperature 98.3, oxygen saturation 95% on room air. GENERAL: The patient is a 46-year-old female, appears stated age, in no acute distress. HEENT: Head: Normocephalic, atraumatic. Pupils are equal, round, and reactive to light. Extraocular motions are intact. Nares are patent bilaterally. NECK: Supple. She does have some tender anterior cervical lymphadenopathy on the left with some excoriations and some erythema, bilateral lateral neck. CARDIOVASCULAR: Regular rate and rhythm. No murmurs, rubs, or gallops. LUNGS: Clear to auscultation bilaterally. No wheezes, rales, or rhonchi. MUSCULOSKELETAL: The patient moves all 4 extremities. Ambulates with steady gait. SKIN: Please see neck. Otherwise warm and dry. LABORATORY DATA AND X-RAYS: None. IMPRESSION: 1. Rash, bilateral neck. 2. Initial visit. EMERGENCY DEPARTMENT COURSE: The patient was brought back to the examination room. Seen and evaluated by myself. History and physical performed as described above. I have discussed results of the history and physical with the patient and her family who are at the bedside. We will place the patient on Bactrim DS orally for 10 days as well as bacitracin topically for 10 days. I have asked the patient followup with Dr. Doty in 3 to 5 days for re-evaluation. I have discussed return to care instructions including worsening symptoms or any other concerns to return to the emergency department as soon as possible. The patient is agreeable, family is agreeable. They are without further questions at this time. DISPOSITION: The patient is discharged home in good condition. DO ERNESTINE PATEL/modl PATIENT'S NAME: DELILAH HICKEY [facility] AGE: 46 Y [address] ROOM: [place] [address] LOCATION: [facility] ADMIT DATE: 09/21/2016 ER/Outpatient Report DISCHARGE DATE: 09/21/2016 FAMILY PHYSICIAN: PHYSICIAN, NO ATTENDING PHYSICIAN: Michael Wolff /[id number] d: 09/21/162136 t: 09/26/162032, OUTPATIENT REPORT
== END 2016-09-21 14:48 | disposition disaster alternative care site (69) ==
LOC: GMED 13:53
DX: R21 Rash and other nonspecific skin eruption (principal); F17.210 Nicotine dependence, cigarettes, uncomplicated; I25.2 Old myocardial infarction; I10 Essential (primary) hypertension; E78.5 Hyperlipidemia, unspecified; Z95.5 Presence of coronary angioplasty implant and graft; Z86.79 Personal history of other diseases of the circulatory system; Z90.49 Acquired absence of other specified parts of digestive tract; Z90.89 Acquired absence of other organs; Z98.890 Other specified postprocedural states; Z79.82 Long term (current) use of aspirin; Z79.899 Other long term (current) drug therapy

== ENCOUNTER 2016-11-12 16:45 | Emergency (ER) | payer SELFPAY ==
--- NOTE | ~2016-11-12 | ER ---
PATIENT'S NAME: DELILAH HICKEY [facility] AGE: 46 Y [address] ROOM: [place] [address] LOCATION: ED ADMIT DATE: 11/12/2016 ER/Outpatient Report DISCHARGE DATE: 11/12/2016 FAMILY PHYSICIAN: Chanel Doty MD ATTENDING PHYSICIAN: Michael Wolff HISTORY OF PRESENT ILLNESS: This patient is a 46-year-old female, who comes in with dysuria, peripheral extremity swelling. The patient is just not feeling well overall. The patient had fever, chills. She had nausea without vomiting, cough with white sputum production, and diarrhea x5. The patient was initially seen by Dr. Wolff. See Dr. Wolff's dictation in regard to chief complaint, history of present illness, past medical history, physical exam. Dr. Wolff asked me to follow up with the patient's laboratory studies, final diagnosis, and treatment plan. LABORATORY DATA AND X-RAYS: The patient's urine showed 2-5 whites, full field reds, 2-5 epithelial cells, moderate bacteria, 1+ mucus per high-powered field with positive nitrites on dipstick. White count was 11,100, 56 segs, 29 lymphs, 12 monos, 2 eos, 1 baso. Hemoglobin was 13.8, hematocrit 42.3, platelet count was 326,000. PTT was 28, pro-time was 10 with an INR 0.95. CMS was normal except for an elevated glucose 154, low calcium of 8.3. Magnesium 1.9. CPK was normal at 79. Cvppl-dh-pznl cardiac enzymes were normal. ProBNP was elevated 368. Procalcitonin was normal less than 0.05. Lactate was slightly elevated at 2.1. EKG showed sinus rhythm. No acute ST elevation, ischemic change, or arrhythmia. Chest x-ray showed no acute infiltrate or changes. We will review x-ray with the radiologist. EMERGENCY DEPARTMENT COURSE: The patient did receive IV normal saline, fluids, Zofran for nausea, acetaminophen for fever, Rocephin 1 g IV for infection. IMPRESSION: Urinary tract infection with low-grade fever, dysuria, nausea, diarrhea. PLAN: The patient was discharged home. Observation. Activity as tolerated. She was started on Keflex 500 mg 3 times a day for 10 days. Good fluid intake. Empty bladder often. Follow up with personal physician in 2 days. Return to emergency room if any worsening conditions. PATIENT'S NAME: DELILAH HICKEY [facility] AGE: 46 Y [address] ROOM: [place], [place] [address] LOCATION: [facility] ADMIT DATE: 11/12/2016 ER/Outpatient Report DISCHARGE DATE: 11/12/2016 FAMILY PHYSICIAN: Chanel Doty MD ATTENDING PHYSICIAN: Michael Wolff MD BAILEE RAPHAEL/rama /[id number] d: 11/12/162236 t: 11/13/16 1809, OUTPATIENT REPORT
--- NOTE | ~2016-11-12 | ER ---
PATIENT'S NAME: DELILAH HICKEY [facility] AGE: 46 Y [address] ROOM: [place] [address] LOCATION: ED ADMIT DATE: 11/12/2016 ER/Outpatient Report DISCHARGE DATE: 11/12/2016 FAMILY PHYSICIAN: Chanel Doty MD ATTENDING PHYSICIAN: Michael Wolff Time of Arrival: 1645 hours. Time of Evaluation: 1650 hours. CHIEF COMPLAINT: "Not feeling good." HISTORY OF PRESENT ILLNESS: The patient is a 46-year-old female who presents to the emergency department today with chief complaint of not feeling well. She reports that this started about 7 days prior to arrival. Her urine is darker than normal. She has had burning and itching for 7 days. She does report fevers subjectively as well as chills as well as nausea, no vomiting. She does report 5 episodes of diarrhea in the past 24 hours. Denies any chest pain. She does report some productive white cough. Denies any current pain at this time. PAST MEDICAL HISTORY: Coronary artery disease, borderline diabetes, hypertension, and dyslipidemia. PAST SURGICAL HISTORY: Appendectomy, cholecystectomy, , and heart stents. SOCIAL HISTORY: The patient smoked half pack per day for 34 years. Denies any alcohol or illicit drug use. ALLERGIES: NO KNOWN DRUG ALLERGIES. MEDICATIONS: Please see list. PRIMARY CARE DOCTOR: Dr. Doty. INTELLIGENCE SENIOR SERGEANT: Dr. Lund. REVIEW OF SYSTEMS: All systems are reviewed by myself and are negative with the exception of [facility] AGE: 46 Y [address] ROOM: [place] [address] LOCATION: [facility] ADMIT DATE: 11/12/2016 ER/Outpatient Report DISCHARGE DATE: 11/12/2016 FAMILY PHYSICIAN: Chanel Doty MD ATTENDING PHYSICIAN: Michael Wolff those discussed in HPI and past medical history. PHYSICAL EXAMINATION: VITAL SIGNS: Weight 64.5 kg, blood pressure 139/64, pulse 110, respiratory rate 20, temperature 99.5, oxygen saturation 94% on room air. GENERAL: The patient is a 46-year-old female, appears stated age, in no acute distress. HEENT: Normocephalic, atraumatic. Pupils are equal, round, and reactive to light and accommodation. Mucous membranes moist. NECK: Supple. There is no nuchal rigidity. CARDIOVASCULAR: Tachycardic. No murmurs, rubs, or gallops. LUNGS: Clear to auscultation bilaterally. No wheezes, rales, or rhonchi. ABDOMEN: Soft, nontender, and nondistended. No rebound, rigidity, or guarding. MUSCULOSKELETAL: The patient moves all 4 extremities. SKIN: Warm and dry. No rashes or lesions noted. LABORATORY DATA AND X-RAYS: Urinalysis is positive for nitrite 100, glucose 250, 2 to 5 wbc's, full field rbc, moderate bacteria. EKG is obtained, interpreted by myself at 1723 hours shows sinus rhythm with a rate of 88, normal axis, normal interval. No ST elevation or ST depression. Nonspecific T-wave. Further laboratory analysis pending at time of transfer of care. IMPRESSION: 1. Acute pyelonephritis. 2. Please see Dr. Marie's dictation. 3. Initial visit. EMERGENCY DEPARTMENT COURSE: The patient was brought back to the examination room. Seen and evaluated by myself. IV was established. Laboratory analysis and imaging are obtained as described above. The patient was given 1 g of Rocephin IV. I have written a prescription for Keflex for home. I have discussed results that I have obtained so far with the patient. The patient is also given a liter of normal saline IV, 4 mg Zofran IV, and 1 g of Tylenol p.o. I have discussed the case with Dr. Marie at shift change. He will follow up on the rest of the laboratory analysis. A 2-view chest x-ray was also obtained and showed no acute process. Please see Dr. Marie's dictation. DISPOSITION: Per Dr. Marie. PATIENT'S NAME: DELILAH HICKEY [facility] AGE: 46 Y [address] ROOM: [place], [place] [address] LOCATION: [facility] ADMIT DATE: 11/12/2016 ER/Outpatient Report DISCHARGE DATE: 11/12/2016 FAMILY PHYSICIAN: Chanel Doty MD ATTENDING PHYSICIAN: Michael Wolff DO ERNESTINE PATEL/rama /[id number] d: 11/12/16 2144 t: 11/19/16 1926, OUTPATIENT REPORT
[2016-11-12 17:17] LABS: BLOOD URINE 250 /UL (NEGATIVE); GLUCOSE URINE 100 mg/dL (NEGATIVE); KETONE URINE NEGATIVE (NEGATIVE); LEUKOCYTES URINE NEGATIVE /UL (NEGATIVE); NITRITE URINE POSITIVE (NEGATIVE); PROTEIN URINE 30 mg/dL (NEGATIVE); SPEC GRAVITY URINE 1.025 (1.003-1.035); TURBIDITY URINE 3+ (CLEAR); UROBILINOGEN URINE 4 mg/dL (NORMAL)
[2016-11-12 17:18] LABS: COLOR URINE OTHER (YELLOW)
[2016-11-12 17:28] LABS: BACTERIA URINE MODERATE (NEGATIVE); RBC URINE FULL FIELD #/HPF (NEGATIVE)
[2016-11-12 17:29] LABS: MUCUS URINE 1+ (NEGATIVE)
[2016-11-12 17:52] LABS: BASOPHIL # 0.1 K/uL (0.0-0.2); BASOPHIL % 0.6 %; EOSINOPHIL # 0.2 K/uL (0.0-0.5); EOSINOPHIL % 1.9 %; HEMATOCRIT 42.3 % (33.0-46.0); HEMOGLOBIN 13.8 g/dL (10.0-15.0); IMMATURE GRANULOCYTE % 0.3 %; LYMPHOCYTE # 3.2 K/uL (0.8-4.0); LYMPHOCYTE % 28.9 %; MCH 29.9 pg (27.0-34.0); MCHC 32.6 gm/dL (32.0-36.5); MCV 91.6 fl (83.0-98.0); MONOCYTE # 1.4 K/uL (0.0-1.0); MONOCYTE % 12.3 %; MPV 9.7 fl (9.4-12.4); NEUTROPHIL # (ANC) 6.2 K/uL (1.8-7.8); NRBC % 0 /100WBC (0-0.00); RBC 4.62 M/uL (3.50-5.50); RDW-CV 13.9 % (11.9-14.6); WBC 11.1 K/uL (4.0-11.0)
[2016-11-12 17:54] LABS: PLATELET COUNT 326 K/uL (150-450)
[2016-11-12 18:01] LABS: INR - (THERAPEUTIC) 0.95 (0.92-1.07); PTT 28 SECONDS (25-32)
[2016-11-12 18:11] LABS: ALBUMIN 3.5 gm/dL (3.5-5.0); ALK PHOS 87 IU/L (33-138); ALT 15 IU/L (12-78); ANION GAP 13.2 (10.0-19.0); AST 12 IU/L (10-40); BLOOD UREA NITROGEN 10 mg/dL (6-24); CALCIUM 8.3 mg/dL (8.5-10.5); CHLORIDE 107 mMol/L (96-110); CO2 23 mMol/L (22-32); CPK 79 IU/L (21-215); CREATININE 0.7 mg/dL (0.5-1.1); MAGNESIUM 1.9 mg/dL (1.8-2.6); POTASSIUM 4.2 mMol/L (3.7-5.1); SODIUM 139 mMol/L (135-145); TOTAL BILIRUBIN 0.2 mg/dL (0.0-1.5); TOTAL PROTEIN 7.2 g/dL (6.0-8.4)
== END 2016-11-12 18:38 | disposition disaster alternative care site (69) ==
LOC: GMED 16:45
PROVIDERS: Emergency Medicine
DX: N10 Acute pyelonephritis (principal); N39.0 Urinary tract infection, site not specified; I25.10 Atherosclerotic heart disease of native coronary artery without angina pectoris; I10 Essential (primary) hypertension; E78.5 Hyperlipidemia, unspecified; F17.210 Nicotine dependence, cigarettes, uncomplicated; Z90.49 Acquired absence of other specified parts of digestive tract; Z98.890 Other specified postprocedural states; Z79.899 Other long term (current) drug therapy; Z79.82 Long term (current) use of aspirin
CPT/HCPCS: J0696; J2405; J7030